=== PATIENT | female | born 1970 | race Two or more races ===

== ENCOUNTER 2016-10-02 10:24 | Emergency (ER) | payer MEDICAID, OTHER, SELFPAY ==
[~2016-10-02] VITALS: Ht 149.9 cm; Wt 71.4 kg
[2016-10-02] MEDS ORDERED: SODIUM CHLORIDE 0.9% 1,000ML IVBOLUS ONE (11:00)
[2016-10-02] MEDS ORDERED: SODIUM CHLORIDE FLUSH 10ML SYR IVF ONE (11:00)
[2016-10-02 11:44] LABS: BLOOD UREA NITROGEN 13 mg/dL (7-18)
[2016-10-02] MEDS ORDERED: ONDANSETRON 2MG/ML, 2ML IVPush ONE (14:00)
[2016-10-02] MEDS ORDERED: MORPHINE SULFATE 4 MG/ML, 1ML IVPush ONE (14:00)
[2016-10-02] MEDS ORDERED: KETOROLAC 30 MG/1 ML ONE (14:48)
[2016-10-02] MEDS ORDERED: ONDANSETRON 2MG/ML, 2ML ONE (14:48)
[2016-10-02] MEDS ORDERED: MORPHINE SULFATE 4 MG/ML, 1ML ONE (14:48)
[2016-10-02] MEDS ORDERED: CEFTRIAXONE PMX 1GM/50ML 50 ML ONE (14:51)
[2016-10-02] MEDS ORDERED: CEFTRIAXONE 1,000 MG in SODIUM CHLORIDE 0.9% 50 ML IV ONE (15:00)
[2016-10-02] MEDS ORDERED: KETOROLAC 30 MG/1 ML IVPush ONE (15:00)
[2016-10-02 16:11] VITALS: BP 116/83
== END 2016-10-02 16:15 | disposition home or self-care (01) ==
LOC: ED 13:23
DX: S00.12XA Contusion of left eyelid and periocular area, initial encounter (principal); N10 Acute pyelonephritis; R55 Syncope and collapse; W19.XXXA Unspecified fall, initial encounter; Y93.89 Activity, other specified; Y92.89 Other specified places as the place of occurrence of the external cause; Y99.8 Other external cause status
CPT/HCPCS: 36415; 70486; 72072; 72110; 80048; 81001; 82040; 84703; 85025; 87077; 87086; 93005; 96361; 96365; 96375; 99285; J0696; J1885; J2405; J7030; 87186

== ENCOUNTER 2018-02-06 15:07 | Emergency (ER) | payer MEDICAID ==
[~2018-02-06] VITALS: Ht 149.9 cm; Wt 70.2 kg
[2018-02-06 15:10] VITALS: BP 105/74
[2018-02-06] MEDS ORDERED: DIPHENHYDRAMINE 50 MG CAPSULE ONE (15:35)
[2018-02-06] MEDS ORDERED: DIPHENHYDRAMINE 50 MG CAPSULE PO ONE (16:00)
[2018-02-06] MEDS ORDERED: DIPHENHYDRAMINE 25 MG CAPSULE PO ONE (16:00)
== END 2018-02-06 16:41 | disposition home or self-care (01) ==
LOC: ED 16:35
DX: T78.40XA Allergy, unspecified, initial encounter (principal); X58.XXXA Exposure to other specified factors, initial encounter
CPT/HCPCS: 99282; Q0163

== ENCOUNTER 2018-02-27 05:15 | Emergency (ER) | payer MEDICAID ==
[~2018-02-27] VITALS: Ht 149.9 cm; Wt 71.0 kg
[2018-02-27 05:17] VITALS: BP 118/78
[2018-02-27] MEDS ORDERED: KETOROLAC 30 MG/1 ML ONE (05:47)
[2018-02-27] MEDS ORDERED: KETOROLAC 30 MG/1 ML IM ONE (06:00)
== END 2018-02-27 07:28 | disposition home or self-care (01) ==
LOC: ED 06:38
DX: M25.571 Pain in right ankle and joints of right foot (principal); R20.2 Paresthesia of skin
CPT/HCPCS: 73610; 73630; 82962; 96372; 99284; J1885